=== PATIENT | female | born 1955 | race Caucasian/White ===

== ENCOUNTER → 2019-03-07 13:34 | Outpatient (CLI) | payer OTHER, SELFPAY ==
--- NOTE | 2019-03-07 | DI.MG.S_ITS ---
BILATERAL DIGITAL SCREENING MAMMOGRAM 3D/2D WITH CAD: 03/07/2019 CLINICAL: Routine screening. Family history of breast cancer. Comparison is made to exams dated: 10/13/2017 mammogram, 11/29/2014 mammogram, and 09/22/2012 mammogram - [facility]. The tissue of both breasts is heterogeneously dense. This may lower the sensitivity of mammography. Current study was also evaluated with a Computer Aided Detection (CAD) system. There are benign calcifications in the left breast. No significant masses, calcifications, or other findings are seen in either breast. There has been no significant interval change. IMPRESSION: There is no mammographic evidence of malignancy. A 1 year screening mammogram is recommended. This exam was interpreted at Station ID: [id number]. NOTE: For mammograms, a report in lay terms will be sent to the patient. Approximately 15% of breast malignancies will not be visualized mammographically. In the management of a palpable breast mass, a negative mammogram must not discourage biopsy of a clinically suspicious lesion. Electronically Signed By: Jose bansal/cathie:03/07/2019 16:38:05 letter sent: Normal Exam ACR BI-RADS Category 2: Benign Finding(s) 3342F
== END ==
PROVIDERS: PCP Family Medicine; Visit Provider Family Medicine
DX: Z12.31 Encounter for screening mammogram for malignant neoplasm of breast (principal); Z80.3 Family history of malignant neoplasm of breast
CPT/HCPCS: 77063; 77067

== ENCOUNTER → 2021-03-30 12:30 | Outpatient (CLI) | payer MEDICARE, SELFPAY ==
--- NOTE | 2021-03-30 12:31 | DI.MG.S_ITS ---
BILATERAL DIGITAL SCREENING MAMMOGRAM 3D/2D WITH CAD: 03/30/2021 CLINICAL: Routine screening. Family history of breast cancer. Comparison is made to exams dated: 03/07/2019 mammogram, 10/13/2017 mammogram, and 11/29/2014 mammogram - [facility]. The tissue of both breasts is heterogeneously dense. This may lower the sensitivity of mammography. Current study was also evaluated with a Computer Aided Detection (CAD) system. There are benign calcifications in the left breast. No significant masses, calcifications, or other findings are seen in either breast. There has been no significant interval change. IMPRESSION: BENIGN There is no mammographic evidence of malignancy. A 1 year screening mammogram is recommended. This exam was interpreted at Station ID: [id number]. NOTE: For mammograms, a report in lay terms will be sent to the patient. Approximately 15% of breast malignancies will not be visualized mammographically. In the management of a palpable breast mass, a negative mammogram must not discourage biopsy of a clinically suspicious lesion. Electronically Signed By: Jeff lu/cathie:04/01/2021 07:50:32 letter sent: Normal Exam ACR BI-RADS Category 2: Benign Finding(s) 3342F
== END ==
PROVIDERS: PCP Family Medicine; Referring Provider Family Medicine; Visit Provider Family Medicine
DX: Z12.31 Encounter for screening mammogram for malignant neoplasm of breast (principal); Z80.3 Family history of malignant neoplasm of breast
CPT/HCPCS: 77063; 77067

== ENCOUNTER → 2021-04-23 12:53 | Outpatient (CLI) | payer MEDICARE, SELFPAY | PROVIDERS: PCP Family Medicine; Referring Provider Nurse Practitioner Family; Visit Provider Nurse Practitioner Family | DX: M81.0 Age-related osteoporosis without current pathological fracture (principal); Z78.0 Asymptomatic menopausal state; E55.9 Vitamin D deficiency, unspecified; Z82.62 Family history of osteoporosis | CPT/HCPCS: 77080 ==

== ENCOUNTER 2021-09-24 10:21 | Emergency (ER) | payer MEDICARE, SELFPAY ==
[2021-09-24 10:42] VITALS: BP 181/87; PULSE 68; RESP 15; TEMP 36.1; O2SAT 99; BMI 31.6
--- NOTE | 2021-09-24 10:49 | DI.RAD.S_ITS ---
PROCEDURE: XR FOOT LT MIN 3V INDICATIONS: foot pain after fall TECHNIQUE: 3 views of the foot were acquired. COMPARISON: None. FINDINGS: Bones: Fractures of the distal 5th and 4th metatarsals. There is mildly displaced appearance. Hindfoot and midfoot degenerative spurring and sclerosis. Mild 1st MTP joint degeneration. Soft tissues: Associated soft tissue swelling. IMPRESSION: Distal 4th and 5th metatarsal fractures. Dictated by: Javon Fontanez M.D. on 09/24/2021 at 12:09 Approved by: Javon Fontanez M.D. on 09/24/2021 at 12:10
--- NOTE | 2021-09-24 11:15 | PC.NURSE ---
Caught left foot/tripped while walking in her house yesterday. Hit knee, hip and side of head. Denies LOC. Bruise to knee and left foot. Only having pain in left foot today. Does not take blood thinners.
--- NOTE | 2021-09-24 12:41 | ED.LOWEXIN ---
HPI - Extremity Injury (Lower) <Indio Tobin PA-C - Last Filed: 09/24/21 18:52> General Chief Complaint: Extremity Injury, Lower Stated Complaint: Injured foot, swollen/bruised Time Seen by Provider: 09/24/21 12:03 Source: patient Mode of arrival: Ambulatory Limitations: no limitations History of Present Illness HPI Narrative: Patient is a 66-year-old female presenting to the emergency department today for an evaluation of left foot pain. Patient states that she was leaving her home yesterday when she tripped over a rug causing her to fall. She states that when she attempted to get up and move around she noticed her left foot pain. Of note, she denies feeling dizzy or lightheaded prior to falling and she denies loss of consciousness as a result of the fall. Patient states that she has been able to bear weight on the left lower extremity, however she states that even minimal weight-bearing increases pain. Additionally, patient states that she feels that her pain and swelling has improved today. Patient denies fever, chills, chest pain, shortness of breath, cough, abdominal pain, nausea, vomiting, diarrhea, dysuria, hematuria, or numbness and tingling throughout the bilateral lower extremities. No other concerns were voiced at this time. Related Data Home Medications Medication Instructions Recorded Confirmed Fish Oil 1,000 mg PO #0 10/29/11 Loratadine (#ALLERGY RELIEF) 10 mg PO QDAY #1 10/29/11 MULTIVITAMIN (Multiple Vitamins 1 tab PO QDAY #0 10/29/11 Daily) VITAMIN D (Vitamin D3) 2,000 unit PO QDAY #0 10/29/11 ACETAMINOPHEN/ASPIRIN, BUFFE 1 tab PO QDAY #0 02/02/13 (#EXCEDRIN BACK & BODY 250 MG-250 MG) Allergies Allergy/AdvReac Type Severity Reaction Status Date / Time codeine [CODEINE] Allergy Mild NAUSEA AND Verified 09/24/21 10:46 VOMITING tramadol [TRAMADOL] Allergy Mild NAUSEA, Verified 09/24/21 10:46 VOMITING Review of Systems <Indio Tobin PA-C - Last Filed: 09/24/21 18:52> Constitutional Constitutional: Denies chills, Denies fatigue, Denies fever(s), Denies frequent falls, Denies lethargy and Denies weakness Eyes Eyes: Denies loss of vision ENT Ears, Nose, Mouth, and Throat: Denies dizziness and Denies neck pain Cardiovascular Cardiovascular: Denies chest pain, Denies irregular heart rhythm, Denies lightheadedness, Denies palpitations, Denies dyspnea, Denies dyspnea on exertion and Denies orthopnea Respiratory Respiratory: Denies cough, Denies dyspnea, Denies dyspnea on exertion and Denies wheezing Gastrointestinal Gastrointestinal: Denies abdominal pain, Denies change in bowel habits, Denies diarrhea, Denies nausea and Denies vomiting Genitourinary Genitourinary: Denies hematuria, Denies flank pain, Denies urinary incontinence and Denies urinary urgency Musculoskeletal Musculoskeletal: Denies back pain, Denies deformity, Reports arthralgias (Left ankle pain), Reports joint swelling (Left ankle, lateral aspect of left foot), Denies muscle weakness, Denies neck pain, Denies numbness, Denies tingling and Reports other Neurologic Neurologic: Denies behavioral changes, Denies confusion, Denies dizziness, Denies frequent falls, Denies loss of vision, Denies numbness, Denies tingling and Denies weakness Psychiatric Psychiatric: Denies behavioral changes and Denies confusion Endocrine Endocrine: Denies fatigue and Denies palpitations Allergic/Immunologic Allergic/Immunologic: Denies wheezing Patient History <Indio Tobin PA-C - Last Filed: 09/24/21 18:52> Surgical History History of third molar tooth extraction Status post surgery (03/26/15) Family History Father Cancer Heart disease Social History Smoking Status: Unknown if ever smoked Smoking Status: Unknown if ever smoked alcohol intake frequency: a few times a week Substance Use Type: does not use Exam <Indio Tobin PA-C - Last Filed: 09/24/21 18:52> Narrative Exam Narrative: GENERAL: 66 year old patient appears stated age. Well-developed patient, in no acute distress. HEAD: Atraumatic. Normocephalic. EYES: Pupils equal round and reactive. Extraocular motions intact. No scleral icterus. No injection or drainage. ENT: Nose without bleeding, purulent drainage. Throat without erythema, tonsillar hypertrophy or exudate. Airway patent. NECK: Trachea midline. Non tender CARDIOVASCULAR: Regular rate and rhythm without murmurs, gallops, or rubs. RESPIRATORY: Clear to auscultation. Breath sounds equal bilaterally. No wheezes, rales, or rhonchi. GASTROINTESTINAL: Abdomen soft, non-tender, nondistended. EXTREMITIES: No edema. Ecchymosis and swelling appreciated along the lateral aspect of the left foot extending into the 5th and 4th metatarsals. Tenderness to palpation appreciated over the distal aspect of the 4th and 5th left metatarsals. No medial left ankle tenderness appreciated with palpation. Gross motor function intact throughout the left lower extremity. Good sensation appreciated throughout the bilateral lower extremities to light touch. BACK: Nontender without deformity or crepitance. No flank tenderness. NEURO: AOx3. SKIN: No rash or erythema of visible areas Initial Vital Signs Initial Vital Signs: Vital Signs Temperature 97.0 F L 09/24/21 10:42 Pulse Rate 68 09/24/21 10:42 Respiratory Rate 15 09/24/21 10:42 Blood Pressure 181/87 H 09/24/21 10:42 Pulse Oximetry 99 09/24/21 10:42 Cardio Pulses: dorsalis pedis present bilaterally <Kaleb Fisher MD - Last Filed: 10/08/21 01:28> Initial Vital Signs Initial Vital Signs: Vital Signs Temperature 97.0 F L 09/24/21 10:42 Pulse Rate 68 09/24/21 10:42 Respiratory Rate 15 09/24/21 10:42 Blood Pressure 181/87 H 09/24/21 10:42 Pulse Oximetry 99 09/24/21 10:42 Course <Indio Tobin PA-C - Last Filed: 09/24/21 18:52> Course Course Narrative: Left foot x-ray obtained. Orders Ordered: ED Orders 09/24/21 10:49 XR foot LT min 3V Stat Consultations Consultation #1: Consult with Dr. Foster (orthopedic surgery). Request the patient be placed in a postop shoe have follow-up with [facility] for earliest available appointment with Dr. Sunshine. Time: 12:54 Vital Signs Vital signs: Vital Signs - 8 hr 09/24/21 13:24 Pulse Rate 72 Blood Pressure 184/74 H Pulse Oximetry 99 <Kaleb Fisher MD - Last Filed: 10/08/21 01:28> Orders Ordered: ED Orders 09/24/21 10:49 XR foot LT min 3V Stat Vital Signs Vital signs: Vital Signs - 8 hr 09/24/21 13:24 Pulse Rate 72 Blood Pressure 184/74 H Pulse Oximetry 99 MDM - Extremity Injury (Lower) <Indio Tobin PA-C - Last Filed: 09/24/21 18:52> Imaging Data Extremity x-ray #1: Radiologist's Impression: PROCEDURE:? XR FOOT LT MIN 3V ? INDICATIONS:? foot pain after fall ? TECHNIQUE:? 3 views of the foot were acquired.? ? COMPARISON:? None. ? FINDINGS:? ? Bones:? Fractures of the distal 5th and 4th metatarsals.? There is mildly displaced appearance. ? Hindfoot and midfoot degenerative spurring and sclerosis.? Mild 1st MTP joint degeneration. ? Soft tissues:? Associated soft tissue swelling. ? ? IMPRESSION:? ? Distal 4th and 5th metatarsal fractures. ? ? ? Dictated by: Javon Fontanez M.D. on 09/24/2021 at 12:09 ? ? Approved by: Javon Fontanez M.D. on 09/24/2021 at 12:10 ? [facility] Narrative Medical decision making narrative: To consider fracture versus dislocation versus sprain versus strain. Overall physical examination history reassuring. Images today in the ER show mildly displaced fractures of the distal 4th and 5th left metatarsals. Patient will be placed in a postop shoe and have strict follow-up with [facility]. Patient agrees to plan. At this time patient feels comfortable being discharged home. Discharge Plan Departure Patient Disposition: Home Clinical Impression: Closed fracture of fourth metatarsal of left foot, Closed displaced fracture of fifth metatarsal bone of left foot Instructions: DI for Foot Fracture Activity Restrictions/Additional Instructions: *You have been diagnosed with left 4th metatarsal fracture, left 5th metatarsal fracture *What to do: *Please continue to take your regular medications as directed. [ ] New medication prescriptions sent to your pharmacy: [ ] [ ] New medication written as a paper prescription [X] No new medications given *Please follow up with your primary care provider in 2-3 days, call for an appointment. Let them know you were seen in the Emergency Department and that we ask that you be seen in follow up. We will electronically transmit a record of today's note if your PCP is in our system. *Please follow-up with [facility] for the earliest available appointment. Office can be reached at . Asked for Dr. Lopez. *If you do not have a primary care provider please contact the [facility] Resource line at [phone]. They will ask some questions about your medical history and help get you set up with a doctor in the community. *Return to Emergency Department if you should have any new, worsening or concerning symptoms, such as fever greater than 101 F, shaking chills, worsening pain, persistent vomiting or other bothersome symptoms. Prescriptions: No Action VITAMIN D (Vitamin D3) 2,000 unit PO QDAY Qty: 0 0RF Fish Oil 1,000 mg PO Qty: 0 0RF MULTIVITAMIN (Multiple Vitamins Daily) 1 tab PO QDAY Qty: 0 0RF Loratadine (#ALLERGY RELIEF) 10 mg PO QDAY Qty: 1 0RF ACETAMINOPHEN/ASPIRIN, BUFFE (#EXCEDRIN BACK & BODY 250 MG-250 MG) 1 tab PO QDAY Qty: 0 0RF Referrals: Kiki Lopez MD [Physician] - As soon as possible Agapito Heaton MD [Primary Care Provider] - <Kaleb Fisher MD - Last Filed: 10/08/21 01:28> Cosign ED Attending Cosignature Attestation: I was immediately available in the department for consultation. This documentation has been reviewed and I agree with assessment and plan. Supervised by Kaleb Fisher MD
[2021-09-24 13:24] VITALS: BP 184/74; PULSE 72; O2SAT 99
== END 2021-09-24 13:24 | disposition home or self-care (01) ==
PROVIDERS: Emergency Provider Physician Assistant; PCP Family Medicine
DX: S92.342A Displaced fracture of fourth metatarsal bone, left foot, initial encounter for closed fracture (principal); S92.352A Displaced fracture of fifth metatarsal bone, left foot, initial encounter for closed fracture; W18.09XA Striking against other object with subsequent fall, initial encounter; Y93.89 Activity, other specified; Y92.009 Unspecified place in unspecified non-institutional (private) residence as the place of occurrence of the external cause
CPT/HCPCS: 73630; 99281; 99283

== ENCOUNTER → 2021-11-21 11:53 | Outpatient (CLI) | payer MEDICARE, SELFPAY ==
--- NOTE | 2021-11-21 | DI.MRI.S_ITS ---
PROCEDURE: MR LUMBAR SPINE WO CON INDICATIONS: Low back pain, unspecified TECHNIQUE: Noncontrast sagittal T1 spin echo and T2 fast echo, sagittal STIR, axial T1 and T2 fast spin echo through the lumbar spine. In cases with scoliosis, additional coronal T2 fast spin echo may be performed. COMPARISON: None. FINDINGS: Image quality: Excellent. Alignment and Curvature: Mild levoconvex scoliotic curvature is noted. Bone Marrow: Marrow is of normal overall signal. No acute vertebral body compression fractures. A remote fracture is seen of L2, with 50% loss of height anteriorly. At the superior aspect of L2, there is posterior displacement of fracture fragments of 2 mm. There is a remote fracture seen involving the inferior endplate of L3, with 40% loss of height centrally. Spinal Cord: Conus medullaris terminates at the T12-L1 level. Visualized cord demonstrates normal signal and size. Paraspinous Soft Tissues: No paravertebral masses. T12-L1: Normal appearance. L1-L2: No significant abnormality is seen. L2-L3: The disc height and disk signal are well-preserved. Mild generalized disc bulge is seen. Moderate facet joint hypertrophy is seen. Moderate bilateral neural foraminal narrowing is seen. Mild central canal narrowing is seen. L3-L4: Moderate loss of disc height and disc signal can be seen posteriorly. At least moderate disc bulge is seen, which is eccentric to the right. There is a right foraminal disc protrusion as well as a central disc protrusion. At least moderate facet hypertrophy is seen at this level. There is moderate to severe bilateral neural foraminal narrowing seen, right worse than left. There is a degree of compression seen upon the exiting nerve roots. At least moderate central canal narrowing is seen. L4-L5: The disc height and disc signal are relatively well preserved. Moderate disc bulge is seen at this level. Moderate to prominent facet hypertrophy is seen. There is at least moderate bilateral neural foraminal narrowing seen, left worse than right. Mild central canal narrowing is seen. L5-S1: Moderate loss of disc height is seen. Loss of disc signal is seen. At least moderate disc bulge is seen, which is eccentric to the left. Moderate to prominent facet hypertrophy is seen, left worse than right. There is at least moderate left-sided and no significant right-sided neural foraminal narrowing. Mild central canal narrowing is seen. IMPRESSION: Multiple levels of lumbar spine degenerative change are seen, which are overall worst at the L3-L4 level. Remote L2 and L3 compression deformities are seen. Dictated by: Lucas Larkin M.D. on 11/21/2021 at 12:27 Approved by: Lucas Larkin M.D. on 11/21/2021 at 12:31
== END ==
PROVIDERS: PCP Family Medicine; Referring Provider Physical Medicine & Rehabilitation Pain Medicine; Visit Provider Physical Medicine & Rehabilitation Pain Medicine
DX: M47.816 Spondylosis without myelopathy or radiculopathy, lumbar region (principal); M47.817 Spondylosis without myelopathy or radiculopathy, lumbosacral region; M48.56XS Collapsed vertebra, not elsewhere classified, lumbar region, sequela of fracture; M54.50 Low back pain, unspecified
CPT/HCPCS: 72148

== ENCOUNTER → 2022-04-09 12:10 | Outpatient (CLI) | payer MEDICARE, SELFPAY ==
--- NOTE | 2022-04-09 12:13 | DI.MG.S_ITS ---
BILATERAL DIGITAL SCREENING MAMMOGRAM 3D/2D WITH CAD: 04/09/2022 CLINICAL: Routine screening. Family history of breast cancer. Comparison is made to exams dated: 03/30/2021 mammogram, 03/07/2019 mammogram, and 10/13/2017 mammogram - [facility]. The tissue of both breasts is heterogeneously dense. This may lower the sensitivity of mammography. Current study was also evaluated with a Computer Aided Detection (CAD) system. There are benign calcifications in the left breast. No significant masses, calcifications, or other findings are seen in either breast. There has been no significant interval change. IMPRESSION: BENIGN There is no mammographic evidence of malignancy. A 1 year screening mammogram is recommended. This exam was interpreted at Station ID: [id number]. NOTE: For mammograms, a report in lay terms will be sent to the patient. Approximately 15% of breast malignancies will not be visualized mammographically. In the management of a palpable breast mass, a negative mammogram must not discourage biopsy of a clinically suspicious lesion. Electronically Signed By: Leander Olmstead M.D., jr/cathie:04/09/2022 14:24:51 letter sent: Normal Exam ACR BI-RADS Category 2: Benign Finding(s) 3342F
== END ==
PROVIDERS: PCP Nurse Practitioner Family; Referring Provider Nurse Practitioner Family; Visit Provider Nurse Practitioner Family
DX: Z12.31 Encounter for screening mammogram for malignant neoplasm of breast (principal); Z80.3 Family history of malignant neoplasm of breast
CPT/HCPCS: 77063; 77067

== ENCOUNTER → 2022-10-10 12:32 | Outpatient (CLI) | payer MEDICARE, SELFPAY | PROVIDERS: PCP Family Medicine; Referring Provider Nurse Practitioner Family; Visit Provider Nurse Practitioner Family | DX: M85.852 Other specified disorders of bone density and structure, left thigh (principal); Z13.820 Encounter for screening for osteoporosis; Z78.0 Asymptomatic menopausal state; Z79.83 Long term (current) use of bisphosphonates; Z51.81 Encounter for therapeutic drug level monitoring | CPT/HCPCS: 77080 ==

== ENCOUNTER → 2023-04-20 14:28 | Outpatient (CLI) | payer MEDICARE, SELFPAY ==
--- NOTE | 2023-04-20 | DI.MG.S_ITS ---
BILATERAL DIGITAL SCREENING MAMMOGRAM 3D/2D WITH CAD: 04/20/2023 CLINICAL: Routine screening. Family history of breast cancer. Comparison is made to exams dated: 04/09/2022 mammogram, 03/30/2021 mammogram, and 03/07/2019 mammogram - [facility]. Both breasts are heterogeneously dense, which may obscure small masses (category c / 51-75% glandular tissue). Current study was also evaluated with a Computer Aided Detection (CAD) system. There are benign calcifications in the left breast. No significant masses, calcifications, or other findings are seen in either breast. There has been no significant interval change. IMPRESSION: BENIGN There is no mammographic evidence of malignancy. A 1 year screening mammogram is recommended. Based on Tyrer-Cuzick model (a risk assessment model), the patient's lifetime risk is 23.5% and her 10 year risk is 14.4%. If a patient has an elevated risk, a more comprehensive evaluation should be considered and/or a referral to a genetic counselor. The [place] [employer], [place] [employer], and NCCN Guidelines advise the consideration of Breast MRI as an adjunct to screening mammography in patients whose Lifetime risk to develop breast cancer is 20% or higher. This exam was interpreted at Station ID: [id number]. NOTE: For mammograms, a report in lay terms will be sent to the patient. Approximately 15% of breast malignancies will not be visualized mammographically. In the management of a palpable breast mass, a negative mammogram must not discourage biopsy of a clinically suspicious lesion. Electronically Signed By: Donte martinez/cathie:04/20/2023 15:00:13 letter sent: Normal Exam ACR BI-RADS Category 2: Benign Finding(s) 3342F
== END ==
PROVIDERS: PCP Family Medicine; Referring Provider Family Medicine; Visit Provider Family Medicine
DX: Z12.31 Encounter for screening mammogram for malignant neoplasm of breast (principal); Z80.3 Family history of malignant neoplasm of breast
CPT/HCPCS: 77063; 77067

== ENCOUNTER → 2024-08-22 10:38 | Outpatient (CLI) | payer MEDICARE, OTHER, SELFPAY ==
--- NOTE | 2024-08-22 10:41 | DI.MG.S_ITS ---
BILATERAL DIGITAL SCREENING MAMMOGRAM 3D/2D WITH CAD: 08/22/2024 CLINICAL: Routine screening. Family history of breast cancer. Comparison is made to exams dated: 04/20/2023 mammogram, 04/09/2022 mammogram, and 03/30/2021 mammogram - [facility]. The breasts are heterogeneously dense, which may obscure small masses (category c / 51-75% glandular tissue). Current study was also evaluated with a Computer Aided Detection (CAD) system. There are benign calcifications in the left breast. No significant masses, calcifications, or other findings are seen in either breast. There has been no significant interval change. IMPRESSION: BENIGN There is no mammographic evidence of malignancy. A 1 year screening mammogram is recommended. Consider additional supplemental MRI screening. Based on Tyrer-Cuzick model (a risk assessment model), the patient's lifetime risk is 21.2% and her 10 year risk is 15.0%. If a patient has an elevated risk, a more comprehensive evaluation should be considered and/or a referral to a genetic counselor. The [place] [employer], [employer], and NCCN Guidelines advise the consideration of Breast MRI as an adjunct to screening mammography in patients whose Lifetime risk to develop breast cancer is 20% or higher. This exam was interpreted at Station ID: [id number]. NOTE: For mammograms, a report in lay terms will be sent to the patient. Approximately 15% of breast malignancies will not be visualized mammographically. In the management of a palpable breast mass, a negative mammogram must not discourage biopsy of a clinically suspicious lesion. Electronically Signed By: Donte Bull M.D. lc/:08/22/2024 14:09:23 letter sent: Normal Exam ACR BI-RADS Category 2: Benign
== END ==
PROVIDERS: PCP Family Medicine; Referring Provider Family Medicine; Visit Provider Family Medicine
DX: Z12.31 Encounter for screening mammogram for malignant neoplasm of breast (principal); Z80.3 Family history of malignant neoplasm of breast; R92.333 Mammographic heterogeneous density, bilateral breasts
CPT/HCPCS: 77063; 77067

== ENCOUNTER → 2025-02-13 09:29 | Outpatient (CLI) | payer MEDICARE, OTHER, SELFPAY ==
--- NOTE | 2025-02-13 09:30 | DI.RAD.S_ITS ---
PROCEDURE: XR DEXA AXIAL SKELETON INDICATIONS: OSTEOPOROSIS COMPARISON: [facility], CR, XR DEXA AXIAL SKELETON, 10/10/2022, 12:55. [facility], CR, XR DEXA AXIAL SKELETON, 04/23/2021, 13:16. FINDINGS: Lumbar Spine: Bone mineral density 0.844 g/cm2, T score -1.8, no significant change. Left Femoral Neck: Bone mineral density 0.582 g/cm2, T score -2.4. Left Hip: Bone mineral density 0.813 g/cm2, T score -1.1, no significant change. Fracture Risk Calculation (when applicable): 10-year fracture risk of a major osteoporotic fracture 20 percent and of a hip fracture 4.6 percent. (T score greater or equal to -1.0 to: NORMAL) (T score from -1.1 to -2.4: OSTEOPENIA) (T score less than or equal to -2.5: OSTEOPOROSIS) IMPRESSION: Low bone mineral density (osteopenia) by WHO classification. Follow-up guidelines as follows: Osteoporosis: Consider a repeat DEXA and Vertebral Fracture Assessment (VFA) exam in 2 years or sooner if medically necessary, to reassess this patient's status. Osteopenia: Consider a repeat DEXA in 2-3 years to reassess this patient's status, or if there is a new clinical indication. Normal: Consider a repeat DEXA in 5 years or sooner, or if there is a new clinical indication. All treatment decisions require clinical judgment and consideration of individual patient factors, including patient preferences, comorbidities, previous drug use, risk factors not captured in the FRAX model (e.g., frailty, falls, vitamin D deficiency, increased bone turnover, interval significant decline in bone density ) and possible under- or over-estimation of fracture risk by FRAX. In addition, the NOF Guide recommends that FDA-approved medical therapies be considered in postmenopausal women and men age >= 50 years with a: * Hip or vertebral (clinical or morphometric) fracture * T-score of <=-2.5 at the spine or hip * Ten-year fracture probability by FRAX of >= 3% for hip fracture or >=20% for major osteoporotic fracture. Dictated by: Cortez Fierro M.D. on 02/13/2025 at 14:13 Approved by: Cortez Fierro M.D. on 02/13/2025 at 14:14
== END ==
LOC: RAD 09:30
PROVIDERS: PCP Family Medicine; Referring Provider Family Medicine; Visit Provider Family Medicine
DX: M81.0 Age-related osteoporosis without current pathological fracture (principal)
CPT/HCPCS: 77080

== ENCOUNTER → 2025-10-23 13:33 | Outpatient (CLI) | payer MEDICARE, OTHER, SELFPAY ==
--- NOTE | 2025-10-23 13:33 | DI.MG.S_ITS ---
MM screening mammo BI: 10/23/2025. BI-RADS: 2 CLINICAL: 70-year old female for bilateral screening mammogram. Tyrer-Cuzick lifetime risk of 15.6%. Current reported family history of breast cancer: mother. The patient had a prior left breast biopsy. PRIOR EXAMS: 08/22/2024, 04/20/2023, 04/09/2022, 03/30/2021, 03/07/2019, 10/13/2017. MAMMOGRAPHY TECHNIQUE: 2D and 3D (tomosynthesis) digital mammographic views obtained, with additional images as needed for full coverage. Current study was also evaluated with a Computer Aided Detection (CAD) system. DENSITY C. The breasts are heterogeneously dense, which may obscure small masses. MAMMOGRAPHY FINDINGS Right: No suspicious mass, asymmetry, microcalcification, or other abnormality seen. Left: Benign-appearing post-surgical changes noted on the left. There are no suspicious masses, calcifications, or other findings in the breast. IMPRESSION: Right * No evidence of malignancy. Left * No evidence of malignancy with benign findings. RECOMMENDATIONS Bilateral * Annual screening mammography. OVERALL ASSESSMENT CATEGORY BI-RADS-2: Benign. [employer] recommends annual screening mammography beginning at age 40 for women with average risk of breast cancer. ELECTRONICALLY SIGNED: Micaela Combs M.D. on 10/23/2025 at 10:14:00 PM PT Interpreting Station ID: [id number]
== END ==
LOC: MAMMO 13:33
PROVIDERS: PCP Physician Assistant; Referring Provider Physician Assistant; Visit Provider Physician Assistant
DX: Z12.31 Encounter for screening mammogram for malignant neoplasm of breast (principal); R92.333 Mammographic heterogeneous density, bilateral breasts; Z80.3 Family history of malignant neoplasm of breast
CPT/HCPCS: 77063; 77067